=== PATIENT | female | born 1965 | race Two or more races ===

== ENCOUNTER 2018-06-01 09:25 | Outpatient (CLI) | payer OTHER | END 2018-06-01 10:03 | disposition home or self-care (01) | LOC: LAB 09:25 | DX: J11.1 Influenza due to unidentified influenza virus with other respiratory manifestations (principal); A49.3 Mycoplasma infection, unspecified site; A92.8 Other specified mosquito-borne viral fevers; A92.0 Chikungunya virus disease ==